=== PATIENT | male | born 1955 | race Caucasian/White ===

== ENCOUNTER 2025-04-25 10:01 | Emergency (ER) | payer OTHER ==
[2025-04-25 10:21] LABS: BASOPHILS PERCENT AUTO 0.2 % (0.0-1.0); EOSINOPHILS PERCENT AUTO 6.1 % (1.0-3.0); HEMATOCRIT 43.7 % (40.0-54.0); LYMPHOCYTES PERCENT AUTO 27.2 % (20.5-50.1); MEAN CORPUSCULAR HEMOGLOBIN 30.2 pg (27.0-34.0); MEAN CORPUSCULAR HGB CONC 34.3 g/dL (33.0-35.0); MEAN CORPUSCULAR VOLUME 88.1 fL (80-100); MONOCYTES PERCENT AUTO 10.6 % (2-8); NEUTROPHILS PERCENT AUTO 55.9 % (42.2-75.2); PLATELET COUNT,PLT 270 10^3/uL (150-450); RED BLOOD CELL COUNT 4.96 10^6/uL (4.6-6.2); WHITE BLOOD CELL COUNT,WBC 4.9 10^3/uL (5.0-10.0)
[2025-04-25 10:37] LABS: PROTHROMBIN TIME 10.1 SEC (9.0-12.0)
[2025-04-25 10:48] LABS: A/G RATIO 1.1; ALANINE AMINOTRANSFERASE,ALT 23 U/L (16-63); ALBUMIN 3.6 g/dL (3.4-5.0); ALKALINE PHOSPHATASE 103 U/L (46-116); ANION GAP 12.5 mEq/L (7-13); ASPARTATE AMNIOTRANSFERASE,AST 18 U/L (15-37); BILIRUBIN TOTAL 0.7 mg/dL (0.2-1.0); BLOOD UREA NITROGEN,BUN 11 mg/dL (7-18); BUN/CREATININE RATIO 10.5 (No establ ref range); CALCIUM 8.8 mg/dL (8.5-10.1); CARBON DIOXIDE,CO2 26 mmol/L (21-32); CHLORIDE,CL 104 mmol/L (98-107); CREATININE 1.05 mg/dL (0.70-1.30); ESTIMATED GFR 77 mL/min (>=60); ETHANOL BLOOD MEDICAL < 3 mg/dL (0); GLUCOSE RANDOM 105 mg/dL (70-99); MAGNESIUM 1.8 mg/dL (1.8-2.4); POTASSIUM,K 3.5 mmol/L (3.5-5.1); SODIUM,NA 139 mmol/L (136-145)
[2025-04-25 10:51] LABS: LACTIC ACID 1.2 mmol/L (0.4-2.0)
== END 2025-04-25 11:13 | disposition home or self-care (01) ==
LOC: DL.ED 10:01
DX: S00.83XA Contusion of other part of head, initial encounter (principal); V57.5XXA Driver of pick-up truck or van injured in collision with fixed or stationary object in traffic accident, initial encounter
CPT/HCPCS: 36415; 71045; 72170; 80053; 80307; 83605; 83735; 85025; 85610; 99282; 99284